=== PATIENT | female | born 2000 | race Caucasian/White ===

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

== ENCOUNTER 2022-12-06 23:49 | Emergency (ER) | payer OTHER ==
[2022-12-06 23:58] VITALS: BP 124/78; PULSE 108; RESP 18; TEMP 99; BMI 25.0
== END 2022-12-07 00:23 | disposition home or self-care (01) ==
LOC: FER 23:49
DX: R51.9 Headache, unspecified (principal); R50.9 Fever, unspecified; M43.6 Torticollis; B34.9 Viral infection, unspecified
CPT/HCPCS: 99282-25